=== PATIENT | female | born 1940 | race Caucasian/White ===

== ENCOUNTER 2017-07-06 09:17 | Emergency (ER) | payer MEDICARE ==
[~2017-07-06] VITALS: Ht 157.5 cm; Wt 55.0 kg
[2017-07-06 09:25] VITALS: BP 156/75; PULSE 90; RESP 18; TEMP 98.2; O2SAT 99
[2017-07-06 09:36] VITALS: O2SAT 99
--- NOTE | 2017-07-06 09:36 | PD ---
HPI Chief Complaint: abdominal pain Time Seen by Provider: 09:22 Travel History International Travel<30 days: No Contact w/Intl Traveler<30days: No Traveled to known affect area: No History of Present Illness HPI The patient was seen and examined in the presence of the nurse. This patient complains of a pain that she's had intermittently for the last 7 days. It only lasts 10 seconds and resolves spontaneously. No alleviating factors. It's located in the epigastrium. Not related to eating. No vomiting or diarrhea. She did recently complete a course of steroids for right knee problems. No alcohol abuse. No history of cardiac or pulmonary disease. No exacerbating factors. Symptoms severity is moderate PFSH Social History Alcohol Use: No Tobacco Use: No Substance Use: No Allergies-Medications (Allergen,Severity, Reaction): Coded Allergies: No Known Allergies (Unverified , 07/06/17) Reported Meds & Prescriptions Reported Meds & Active Scripts Active Reported Verapamil ER 24 HR (Verapamil HCl) 240 Mg Tab 240 Mg PO HS Losartan-Hydrochlorothiazide 100-12.5 Mg Tab 1 Tab PO DAILY Review of Systems General / Constitutional: No: Fever Eyes: No: Visual changes HENT: No: Headaches Cardiovascular: No: Chest Pain or Discomfort Respiratory: No: Shortness of Breath Gastrointestinal: Positive: Abdominal Pain Genitourinary: No: Dysuria Musculoskeletal: No: Pain Skin: No Rash Neurologic: No: Weakness Psychiatric: No: Depression Endocrine: No: Polydipsia Hematologic/Lymphatic: No: Easy Bruising Physical Exam Narrative GENERAL: Well-nourished, well-developed patient in no apparent distress. SKIN: Focused skin assessment reveals no rash and nodules. Skin is Warm and dry. HEAD: Atraumatic. Normocephalic. EYES: Pupils equal and round. No scleral icterus. No injection or drainage. ENT: No nasal bleeding or discharge. Mucous membranes pink and moist. NECK: Trachea midline. No JVD. CARDIOVASCULAR: Regular rate and rhythm. No murmur appreciated. RESPIRATORY: No accessory muscle use. Clear to auscultation. Breath sounds equal bilaterally. GASTROINTESTINAL: Abdomen soft, non-tender, nondistended. Hepatic and splenic margins not palpable. MUSCULOSKELETAL: No obvious deformities. No clubbing. No cyanosis. No edema. NEUROLOGICAL: Awake and alert. No obvious cranial nerve deficits. Motor grossly within normal limits. Normal speech. PSYCHIATRIC: Appropriate mood and affect; insight and judgment normal. Data Data Last Documented VS Vital Signs Date Time Temp Pulse Resp B/P (MAP) Pulse Ox O2 Delivery O2 Flow Rate FiO2 07/06/17 10:42 69 18 99/58 (72) 99 Room Air 07/06/17 09:25 98.2 Orders Orders Complete Blood Count With Diff (07/06/17 09:29) Comprehensive Metabolic Panel (07/06/17:) Lipase (07/06/17:29) Iv Access Insert/Monitor (07/06/17) Ecg Monitoring (07/06/17:) Oximetry (07/06/17:) Electrocardiogram (07/06/17:) Troponin I (07/06/17:) Ckmb (Isoenzyme) Profile (07/06/17:29) Labs Laboratory Tests Test 07/06/17 09:40 White Blood Count 8.7 TH/MM3 Red Blood Count 4.57 MIL/MM3 Hemoglobin 14.8 GM/DL Hematocrit 43.6 % Mean Corpuscular Volume 95.3 FL Mean Corpuscular Hemoglobin 32.2 PG Mean Corpuscular Hemoglobin Concent 33.8 % Red Cell Distribution Width 12.2 % Platelet Count 284 TH/MM3 Mean Platelet Volume 7.7 FL Neutrophils (%) (Auto) 62.6 % Lymphocytes (%) (Auto) 26.5 % Monocytes (%) (Auto) 8.8 % Eosinophils (%) (Auto) 1.6 % Basophils (%) (Auto) 0.5 % Neutrophils # (Auto) 5.5 TH/MM3 Lymphocytes # (Auto) 2.3 TH/MM3 Monocytes # (Auto) 0.8 TH/MM3 Eosinophils # (Auto) 0.1 TH/MM3 Basophils # (Auto) 0.0 TH/MM3 CBC Comment DIFF FINAL Differential Comment Blood Urea Nitrogen 17 MG/DL Creatinine 0.78 MG/DL Random Glucose 103 MG/DL Total Protein 7.1 GM/DL Albumin 3.6 GM/DL Calcium Level 9.1 MG/DL Alkaline Phosphatase 33 U/L Aspartate Amino Transf (AST/SGOT) 17 U/L Alanine Aminotransferase (ALT/SGPT) 24 U/L Total Bilirubin 0.4 MG/DL Sodium Level 140 MEQ/L Potassium Level 3.8 MEQ/L Chloride Level 102 MEQ/L Carbon Dioxide Level 27.7 MEQ/L Anion Gap 10 MEQ/L Estimat Glomerular Filtration Rate 72 ML/MIN Total Creatine Kinase 49 U/L Troponin I LESS THAN 0.02 NG/ML Lipase 196 U/L [facility] Medical Decision Making Medical Screen Exam Complete: Yes Emergency Medical Condition: Yes Medical Record Reviewed: Yes Differential Diagnosis Differential diagnosis includes pancreatitis, biliary colic, hepatitis, GERD, peptic ulcer disease. Narrative Course I have reviewed the patient's electronic medical record. IV placed CBC is normal metabolic profile is normal LFT's are normal lipase is normal I reviewed her EKG which is normal Extended cardiac monitoring reveals sinus rhythm without ectopy CK is normal Troponin is normal This patient has epigastric pain with a negative workup and is stable for outpatient follow-up May have peptic ulcer disease brought on by her steroids Recommend acid blocking medication and primary care follow-up and avoidance of gastric irritants Diagnosis Primary Impression: Acute epigastric pain Additional Instructions: The patient was advised to follow up with their physician and return if they worsen. Start [id number] Zantac or Prilosec Avoid steroids and anti-inflammatories and aspirin and alcohol Med/Other Pt SpecificInfo: Other Disposition: 01 DISCHARGE HOME Condition: Stable Marcell Cardoso MD Jul 06, 2017 09:36
[2017-07-06] MEDS ORDERED: VERA1TAB17 PO (09:42)
[2017-07-06] MEDS ORDERED: LOSA100T3 PO (09:42)
[2017-07-06 09:53] VITALS: BP 114/58; PULSE 71; RESP 18; O2SAT 96
[2017-07-06 10:00] LABS: AUTOMATED NEUTROPHIL # 5.5 TH/MM3 (1.8-7.7); BASOPHIL % 0.5 % (0.0-2.0); EOSINOPHIL # 0.1 TH/MM3 (0-0.4); EOSINOPHIL % 1.6 % (0.0-4.0); HEMATOCRIT 43.6 % (35.0-46.0); HEMO FLAGS DIFF FINAL; LYMPH % 26.5 % (9.0-44.0); LYMPHOCYTE # 2.3 TH/MM3 (1.0-4.8); MEAN CELL VOLUME 95.3 FL (80.0-100.0); MEAN CORPUSCULAR HEMOGLOBIN 32.2 PG (27.0-34.0); MEAN CORPUSCULAR HGB CONC 33.8 % (32.0-36.0); MONO % 8.8 % (0.0-8.0); NEUT % 62.6 % (16.0-70.0); PLATELET COUNT 284 TH/MM3 (150-450); RED BLOOD COUNT 4.57 MIL/MM3 (4.00-5.30); RED CELL DISTRIBUTION WIDTH 12.2 % (11.6-17.2); WHITE BLOOD COUNT 8.7 TH/MM3 (4.0-11.0)
[2017-07-06 10:15] LABS: CHLORIDE 102 MEQ/L (98-107); POTASSIUM 3.8 MEQ/L (3.5-5.1); SODIUM (NA) 140 MEQ/L (136-145)
[2017-07-06 10:16] LABS: ANION GAP 10 MEQ/L (5-15); BICARBONATE 27.7 MEQ/L (21.0-32.0)
[2017-07-06 10:19] LABS: ALT (GPT) 24 U/L (10-53); AST (GOT) 17 U/L (15-37); GLOMERULAR FILTRATION RATE 72 ML/MIN (>89)
[2017-07-06 10:20] LABS: TOTAL BILIRUBIN ADULT 0.4 MG/DL (0.2-1.0)
[2017-07-06 10:22] LABS: ALKALINE PHOSPHATASE 33 U/L (45-117)
[2017-07-06 10:26] LABS: BLOOD UREA NITROGEN 17 MG/DL (7-18)
[2017-07-06 10:31] LABS: CREATINE KINASE 49 U/L (26-192)
[2017-07-06 10:42] VITALS: BP 99/58; PULSE 69; RESP 18; O2SAT 99
--- NOTE | 2017-07-06 17:03 | EKG ---
Date Performed: 07/06/2017 Time Performed: 09:25:43 PTAGE: 77 years EKG: Sinus rhythm NORMAL ECG NO PREVIOUS TRACING DOCTOR: [place] Interpretating Date/Time 07/06/2017 17:01:48
== END 2017-07-06 11:07 | disposition home or self-care (01) ==
LOC: PHED 09:17
DX: R10.13 Epigastric pain (principal)
CPT/HCPCS: 80053; 82550; 83690; 84484; 85025; 93005; 99284